=== PATIENT | female | born 1990 | race Hispanic/Latino ===

== ENCOUNTER 2017-07-22 19:23 | Emergency (ER) | payer SELFPAY ==
[~2017-07-22] VITALS: Ht 154.9 cm; Wt 81.8 kg
[~2017-07-22 19:23] MED LIST: AMOXICILLIN500 MG PO; CONCEPT OB PO; ZOLOFT25 MG PO; ZOLOFT50 MG PO
[2017-07-22] MEDS ORDERED: TYLENOL325 MG PO (19:41)
[2017-07-22 21:01] LABS: INFLUENZA A NONE DETECTED (NONE DETECT); INFLUENZA B NONE DETECTED (NONE DETECT)
[2017-07-22] MEDS ORDERED: GENTAK0.32 OS (21:13)
[2017-07-22 21:15] VITALS: BP 120/73
== END 2017-07-22 21:18 | disposition home or self-care (01) | DRG 125 ==
LOC: ED 19:23
PROVIDERS: Emergency Medicine
DX: H10.9 Unspecified conjunctivitis (principal)

== ENCOUNTER 2020-02-26 19:49 | Emergency (ER) | payer OTHER ==
[~2020-02-26] VITALS: Ht 154.9 cm; Wt 56.0 kg
[~2020-02-26 19:49] MED LIST changes: +GENTAK0.32 OS; +TYLENOL325 MG PO
[2020-02-26 20:30] LABS: GFR > 60 ML/MIN (>=60 (CALC)); GFR FOR AFR.AMER. > 60 ML/MIN (>=60 (CALC))
[2020-02-26 20:32] LABS: HEMATOCRIT 37.6 % (37.0-47.0); HEMOGLOBIN 12.5 g/dl (12.0-16.0); IMMATURE GRANULOCYTES 0.4 % (0.0-5.0); MEAN CELL VOLUME 89.3 fL CALC (80.0-100.0); MEAN CORPUSCULAR HGB 29.7 pG CALC (26.0-32.0); MEAN CORPUSCULAR HGB CONC 33.2 g/dL CAL (32.0-36.0); NEUT# 5.28 thou/uL (2.00-7.15); RED BLOOD COUNT 4.21 mill/uL (4.20-5.60); RED CELL DISTRI WIDTH 12.2 % (11.5-15.5)
[2020-02-26 20:51] LABS: ALBUMIN 4.2 g/dL (3.2-5.0); ALKALINE PHOSPHATASE 78 u/l (38-126); ANION GAP 14 (6-22 (CALC)); BUN 8 mg/dL (7-17); BUN/CREATININE RATIO 15 (12-20 (CALC)); CARBON DIOXIDE 21 mmol/l (22-30); CHLORIDE 104 mmol/l (95-108); CREATININE 0.5 mg/dL (0.5-1.0); ETHYL ALCOHOL 0 mg/dl (0-30); GFR > 60 ML/MIN (>=60 (CALC)); GFR FOR AFR.AMER. > 60 ML/MIN (>=60 (CALC)); LIPASE 127 u/l (23-300); POTASSIUM 3.5 mmol/l (3.5-5.1); SGOT/AST 20 u/l (14-36); SODIUM 135 mmol/l (137-146); TOTAL PROTEIN 7.1 g/dL (6.3-8.2)
[2020-02-26 20:52] LABS: ACT PARTIAL THROMBO TIME 23.6 SECONDS (20.0-32.5); INTERNATIONAL NORMALIZED RATIO 0.9 RATIO (0.7-1.3); PROTHROMBIN TIME 9.2 SECONDS (9.0-12.5)
[2020-02-26 20:55] LABS: BILIRUBIN, TOTAL 0.3 mg/dL (0.0-1.4)
[2020-02-26 21:18] VITALS: BP 117/57
[2020-02-26 21:21] LABS: TSH, 3RD GENERATION 0.89 uIU/mL (0.47 - 4.68)
[2020-02-26 21:33] LABS: BETA-HCG, QUANT(RESULT NUMBER) 40768 mIU/mL
== END 2020-02-26 21:20 | disposition short-term general hospital (02) | DRG 831 ==
LOC: ED 19:49
DX: O99.412 Diseases of the circulatory system complicating pregnancy, second trimester (principal); I60.9 Nontraumatic subarachnoid hemorrhage, unspecified; O99.342 Other mental disorders complicating pregnancy, second trimester; Z3A.15 15 weeks gestation of pregnancy; Z20.828 Contact with and (suspected) exposure to other viral communicable diseases
CPT/HCPCS: J0131

== ENCOUNTER 2022-03-27 13:51 | Emergency (ER) | payer SELFPAY ==
[~2022-03-27] VITALS: Ht 154.9 cm; Wt 88.6 kg
[2022-03-27 13:54] VITALS: BP 155/98
[2022-03-27] MEDS ORDERED: FLOXIN OTIC0.3 % AS (14:25)
[2022-03-27] MEDS ORDERED: AMOXICILLIN500 M2 PO (14:25)
[2022-03-27 14:27] VITALS: BP 155/98
== END 2022-03-27 14:36 | disposition home or self-care (01) | DRG 153 ==
LOC: ED 13:51
DX: H66.93 Otitis media, unspecified, bilateral (principal); H60.92 Unspecified otitis externa, left ear